=== PATIENT | male | born 1980 | race Caucasian/White ===

== ENCOUNTER 2017-08-28 09:05 | Emergency (ER) | payer MEDICAID ==
[~2017-08-28] VITALS: Ht 167.6 cm; Wt 80.7 kg
[2017-08-28] MEDS ORDERED: IBUPROFEN600 MG ORAL (09:34)
[2017-08-28] MEDS ORDERED: TYLENOL325 MG ORAL (09:34)
[2017-08-28] MEDS ORDERED: Acetaminophen 500mg (ES) tab ORAL ONE (09:45)
[2017-08-28 10:18] VITALS: BP 117/65
--- NOTE | 2017-08-28 11:01 | Diagnostic Imaging Report ---
Indication: Pain Technique: XRAY Knee 3v R Comparison: None Findings: There is no acute fracture or dislocation. Anatomic alignment and normal limits. There is minimal narrowing of the medial femorotibial compartment. No knee joint effusion. No radiopaque foreign body seen. Impression: No acute fracture or dislocation.
--- NOTE | 2017-08-28 14:50 | Emergency Room Report ---
History of Present Illness General Chief Complaint: Lower Extremity Injury Source: Patient Present Illness HPI Patient 36-year-old male presented to increased right knee pain. Patient gradual onset of symptoms since yesterday. Patient states that he had been running and subsequently developed increased pain. He reports having some numbness to the second third and fourth toe. He denies any weakness. Allergies: Coded Allergies: No Known Allergies (Unverified , 08/28/17) Patient History Past Medical History: see triage record Reviewed Nursing Documentation: PMH: Agreed, PSxH: Agreed Nursing Documentation-PMH Past Medical History: No Stated History Review of Systems All Other Systems: negative except mentioned in HPI Physical Exam Vital Signs Date Time Temp Pulse Resp B/P (MAP) Pulse Ox O2 Delivery O2 Flow Rate FiO2 08/28/17 09:08 98.1 63 18 117/65 99 Room Air General Appearance: well appearing, no apparent distress, alert, GCS 15 Head: normocephalic, atraumatic ENT: hearing grossly normal, normal voice Neck: full range of motion, supple Respiratory: no respiratory distress, speaking full sentences Cardiovascular #1: normal peripheral pulses, regular rate, rhythm, no edema Gastrointestinal: normal inspection, non tender, soft Musculoskeletal: no calf tenderness, decreased range of mation, other - laxity to medial stress Neurologic: normal inspection, alert, oriented x3, normal gait Psychiatric: mood/affect normal Skin: no rash Medical Decision Making Diagnostic Impression: Primary Impression: Knee MCL sprain ER Course Patient presented for knee pain. Differential diagnosis included was not limited to popliteal aneurysm, arthritis, dislocation, ligamentous injury, septic joint among others. Because of complexity of patient's case imaging studies were ordered. X-ray imaging previous interpreted by me showed normal blood alignment without evident fracture. The patient given ibuprofen and Tylenol. The patient was ambulated with crutches. The patient stated he will followup with his orthopedic physician. Last Vital Signs Date Time Temp Pulse Resp B/P (MAP) Pulse Ox O2 Delivery O2 Flow Rate FiO2 08/28/17 10:18 98.1 63 18 117/65 99 Room Air Status: improved Disposition: HOME, SELF-CARE Condition: Stable Scripts Acetaminophen (Tylenol) 325 Mg Tablet 650 MG ORAL Q6H Y for Prn Pain/Headache/Temp > 101, #30 TAB 0 Refills Prov: Linus Godwin 12/30/17 Ibuprofen* (MOTRIN*) 600 Mg Tablet 600 MG ORAL Q8H Y for For Pain, #30 TAB 0 Refills Prov: Linus Godwin 08/28/17 Referrals: [facility]ERR[facility] (PCP) Patient Instructions: Knee Sprain, [id number] Linus Godwin Aug 28, 2017 14:50
== END 2017-08-28 10:20 | disposition home or self-care (01) ==
LOC: EMR 09:48
DX: S83.8X1A Sprain of other specified parts of right knee, initial encounter (principal); R20.0 Anesthesia of skin
CPT/HCPCS: 99284

== ENCOUNTER 2018-05-09 02:59 | Emergency (ER) | payer MEDICAID ==
[~2018-05-09] VITALS: Ht 167.6 cm; Wt 81.6 kg
[~2018-05-09 02:59] MED LIST: IBUPROFEN600 MG ORAL; TYLENOL325 MG ORAL
[2018-05-09 03:15] VITALS: BP 129/87
--- NOTE | 2018-05-09 03:24 | Emergency Room Report ---
History of Present Illness General Chief Complaint: General Complaint Source: Patient Present Illness HPI CC: "I relapsed." HPI: Mr. Donis is a healthy 37 yo male who presents 20 minutes after smoking crack cocaine. He developed a nosebleed and headache. His friend asked him to be evaluated in ED. He has diffuse numbness and tingling in body. He feels anxiety. He has mild chest pressure. Mild diffuse headache. Allergies: Coded Allergies: No Known Allergies (Unverified , 08/28/17) Patient History Past Medical History: see triage record, old chart reviewed Social History: Reports: drug use Reviewed Nursing Documentation: PMH: Agreed; PSxH: Agreed Review of Systems Constitutional: Denies: fever, malaise Cardiovascular: Reports: chest pain Gastrointestinal: Denies: abdominal pain Musculoskeletal: Denies: back pain Neurological: Reports: headache, paresthesia All Other Systems: negative except mentioned in HPI Physical Exam Vital Signs Date Time Temp Pulse Resp B/P (MAP) Pulse Ox O2 Delivery O2 Flow Rate FiO2 05/09/18 03:09 97.9 100 20 121/71 97 Room Air 97.9 Sp02 EP Interpretation: reviewed, normal General Appearance: no apparent distress, alert, GCS 15, non-toxic Head: normocephalic, atraumatic Eyes: bilateral eye normal inspection ENT: hearing grossly normal, normal pharynx, no angioedema, normal voice, other - dried blood in right nare no active bleeding no septal hematoma Neck: full range of motion, supple/symm/no masses Respiratory: chest non-tender, lungs clear, normal breath sounds, no rhonchi, no respiratory distress, no retraction, no accessory muscle use, no wheezing, speaking full sentences Cardiovascular #1: regular rate, rhythm, no edema, no gallop, no JVD, no murmur , no rub Gastrointestinal: normal bowel sounds, non tender, soft, non-distended, no guarding, no rebound Genitourinary: normal inspection Musculoskeletal: back normal, gait/station normal, normal range of motion, non- tender Neurologic: alert, oriented x3, responsive, motor strength/tone normal, sensory intact, speech normal Psychiatric: judgement/insight normal, memory normal, no suicidal/homicidal ideation, anxious Skin: normal color, no rash, warm/dry, well hydrated Lymphatic: no adenopathy Medical Decision Making Diagnostic Impression: Primary Impression: Cocaine abuse Additional Impressions: Headache Anterior epistaxis Chest pressure ER Course Mr. Donis walked into ER calmly. Appeared well and comfortable. During examination, he became anxious. I do not suspect ACS, dissection, ICH. Given lorazepam and reassurance. dc'd home Last Vital Signs Date Time Temp Pulse Resp B/P (MAP) Pulse Ox O2 Delivery O2 Flow Rate FiO2 05/09/18 03:09 97.9 100 20 121/71 97 Room Air 97.9 Status: improved Sheela Thomas MD May 09, 2018 03:24
[2018-05-09] MEDS ORDERED: LORazepam 1mg tab ORAL ONE (03:30)
[2018-05-09 03:40] VITALS: BP 124/86
== END 2018-05-09 03:50 | disposition home or self-care (01) ==
LOC: EMR 03:50
DX: F14.10 Cocaine abuse, uncomplicated (principal); R51 Headache; R04.0 Epistaxis; R07.89 Other chest pain
CPT/HCPCS: 99282

== ENCOUNTER 2019-12-27 10:25 | Emergency (ER) | payer MEDICAID ==
[~2019-12-27] VITALS: Ht 167.6 cm; Wt 81.6 kg
[2019-12-27 10:30] VITALS: BP 106/64
--- NOTE | 2019-12-27 10:55 | Emergency Room Report ---
History of Present Illness General Chief Complaint: Flu Like Symptoms Source: Patient Present Illness HPI Disclaimer: Please note that this report is being documented using [email or web address] technology. This can lead to erroneous entry secondary to incorrect interpretation by the dictating instrument. HPI: 39-year-old male presents for evaluation of chest pain shortness of breath. Symptoms present approximately 1 week. The patient states he has a history of crack cocaine use and recently relapsed. Since then he has been having anterior chest pain and upper shoulder pain for approximately 1 week. No exacerbating relieving symptoms. He is also developed some shortness of breath, nonproductive cough, nasal congestion, sore throat. Denies fever, vomiting, diarrhea. No known sick contacts. The patient has been isolating. Has not had a COVID-19 test. States he has a history of heart murmur and possible valve problem but he does not know his formal diagnosis. PMH: Unspecified heart valve issue, substance abuse PSH: Denied Allergies: Denied Social Hx: cocaine use Allergies: Coded Allergies: No Known Allergies (Unverified , 08/28/17) COVID-19 Screening Contact w/high risk pt: No Recent Travel to affected area: No Experienced COVID-19 symptoms?: Yes COVID-19 symptoms experienced: Shortness of Breath, Cough, Runny Nose, Flu- Like Symptoms Nursing Documentation-PMH Past Medical History: No History, Except For Review of Systems All Other Systems: negative except mentioned in HPI Physical Exam Vital Signs Date Time Temp Pulse Resp B/P (MAP) Pulse Ox O2 Delivery O2 Flow Rate FiO2 12/27/19 10:30 97.7 55 19 106/64 98 Room Air General: Awake and alert, no acute distress HEENT: NC/AT. EOMI. Cardiovascular: RRR. S1 and S2 normal. No murmur appreciated Resp: Normal work of breathing. Nonproductive cough during exam. No wheezing or crackles Skin: Intact. No abrasions, laceration or rash over the exposed skin MSK: Normal tone and bulk. Moving all extremities. No obvious deformity. Neuro: Awake and alert. Mentating appropriately. Medical Decision Making Diagnostic Impression: Primary Impression: Chest pain Additional Impressions: Suspected 2019 novel coronavirus infection Stimulant use disorder Respiratory illness ER Course 39-year-old male presents for evaluation of chest pain shortness of breath of 4 days duration. Differential includes was not limited to substance induced vasospasm, angina, electrolyte abnormality, musculoskeletal chest pain, myocarditis, pericarditis, aortic dissection, PE, ACS, viral syndrome, COVID-19 infection, GERD, respiratory syndrome. EKG obtained at triage concerning for ST segment changes in lead I and aVL without reciprocal depressions. Repeat EKGs with similar morphology. No prior for comparison. Lead I approximately 1 mm elevation with lead aVL slightly less. Patient has persistent chest pain was given aspirin. Chest x-ray shows a normal cardiac silhouette. No pneumothorax, no infiltrates. I have less concern for aortic dissection clinically as opposed to either COVID-19 induced vasospasm/STEMI mimic or substance-induced vasospasm. Discussed with Dr. Goncalves at [facility] who has accepted the patient for transfer and cardiology evaluation. Will be sent by stat [facility]. Vital signs remained within normal limits. Patient stable for transfer. Laboratory Tests Test 12/27/19 12:01 12/27/19 12:30 White Blood Count 10.5 K/UL (4.8-10.8) Red Blood Count 5.19 M/UL (4.70-6.10) Hemoglobin 15.0 G/DL (14.2-18.0) Hematocrit 42.1 % (42.0-52.0) Mean Corpuscular Volume 81 FL (80-99) Mean Corpuscular Hemoglobin 28.9 PG (27.0-31.0) Mean Corpuscular Hemoglobin Concent 35.7 G/DL (32.0-36.0) Red Cell Distribution Width 10.8 % (11.6-14.8) L Platelet Count 218 K/UL (150-450) Mean Platelet Volume 7.0 FL (6.5-10.1) Neutrophils (%) (Auto) 78.7 % (45.0-75.0) H Lymphocytes (%) (Auto) 12.7 % (20.0-45.0) L Monocytes (%) (Auto) 5.6 % (1.0-10.0) Eosinophils (%) (Auto) 2.5 % (0.0-3.0) Basophils (%) (Auto) 0.5 % (0.0-2.0) Sodium Level 143 MMOL/L (136-145) Potassium Level 4.7 MMOL/L (3.5-5.1) Chloride Level 108 MMOL/L (98-107) H Carbon Dioxide Level 27 MMOL/L (21-32) Anion Gap 8 mmol/L (5-15) Blood Urea Nitrogen 19 mg/dL (7-18) H Creatinine 1.2 MG/DL (0.55-1.30) Estimated Glomerular Filtration Rate > 60 mL/min (>60) Glucose Level 100 MG/DL (74-106) Calcium Level 8.7 MG/DL (8.5-10.1) Total Bilirubin 0.3 MG/DL (0.2-1.0) Aspartate Amino Transferase (AST) 19 U/L (15-37) Alanine Aminotransferase (ALT) 50 U/L (12-78) Alkaline Phosphatase 41 U/L (46-116) L Troponin I 0.000 ng/mL (0.000-0.056) Pro-B-Type Natriuretic Peptide 18 pg/mL (0-125) Total Protein 6.8 G/DL (6.4-8.2) Albumin 3.8 G/DL (3.4-5.0) Globulin 3.0 g/dL Albumin/Globulin Ratio 1.3 (1.0-2.7) Urine Opiates Screen Pending Urine Barbiturates Screen Pending Phencyclidine (PCP) Screen Pending Urine Amphetamines Screen Pending Urine Benzodiazepines Screen Pending Urine Cocaine Screen Pending Urine Marijuana (THC) Screen Pending EKG Diagnostic Results EKG Time: 11:03 Rate: normal Rhythm: NSR Other Impression Sinus rhythm, slight left axis deviation, normal intervals. There is ST segment elevation in lead I and aVL without reciprocal depressions. Rhythm Strip Diag. Results Rhythm Strip Time: 11:03 EP Interpretation: yes Rate: 60s Rhythm: NSR, no PVC's, no ectopy Last Vital Signs Date Time Temp Pulse Resp B/P (MAP) Pulse Ox O2 Delivery O2 Flow Rate FiO2 12/27/19 10:30 55 19 Room Air 12/27/19 10:30 97.7 106/64 (78) 98 Disposition: SHORT-TERM HOSP Condition: Serious Brooks Workman MD Dec 27, 2019 10:55
--- NOTE | 2019-12-27 10:57 | NUR ---
ED Nurse Note: pt. aaox4. ambulatory.pt. walked in to er from home. per pt. he has been having cough, congestion and cp that radiates to his back x 4 days.
--- NOTE | 2019-12-27 11:45 | NUR ---
ED Nurse Note: Pt resting on bed with portable manager cardiac cath and applied supplemental oxygen at 2LPM.
--- NOTE | 2019-12-27 11:50 | Diagnostic Imaging Report ---
Indication: Cough, chest pain Technique: XRAY Chest 1v Comparison: None Findings: Heart size and mediastinal contours are within normal limits for AP technique. There is no focal airspace consolidation, pneumothorax or pleural effusion. Mild scoliosis may possibly be in part positional. Osseous structures demonstrate no acute abnormality. Impression: No radiographic evidence of acute cardiopulmonary disease.
[2019-12-27 12:15] LABS: BASOPHILS % (AUTO) 0.5 % (0.0-2.0); EOSINOPHILS % (AUTO) 2.5 % (0.0-3.0); HEMATOCRIT 42.1 % (42.0-52.0); LYMPHOCYTES % (AUTO) 12.7 % (20.0-45.0); MEAN CORPUSCULAR VOLUME 81 FL (80-99); MONOCYTES % (AUTO) 5.6 % (1.0-10.0); NEUTROPHILS % (AUTO) 78.7 % (45.0-75.0); PLATELET COUNT 218 K/UL (150-450); RED BLOOD COUNT 5.19 M/UL (4.70-6.10); RED CELL DISTRIBUTION WIDTH 10.8 % (11.6-14.8); WHITE BLOOD COUNT 10.5 K/UL (4.8-10.8)
[2019-12-27 12:26] LABS: ANION GAP 8 mmol/L (5-15); BLOOD UREA NITROGEN 19 mg/dL (7-18); CALCIUM 8.7 MG/DL (8.5-10.1); CARBON DIOXIDE 27 MMOL/L (21-32); CHLORIDE 108 MMOL/L (98-107); CREATININE 1.2 MG/DL (0.55-1.30); POTASSIUM 4.7 MMOL/L (3.5-5.1); SODIUM 143 MMOL/L (136-145)
[2019-12-27] MEDS ORDERED: Aspirin Baby 81mg ORAL ONE (12:30)
[2019-12-27 12:37] VITALS: BP 116/63
[2019-12-27 12:37] LABS: ALANINE AMINOTRANSFERASE 50 U/L (12-78); ALBUMIN 3.8 G/DL (3.4-5.0); ALBUMIN/GLOBULIN RATIO 1.3 (1.0-2.7); ALKALINE PHOSPHATASE 41 U/L (46-116); ASPARTATE AMINO TRANSFERASE 19 U/L (15-37); BILIRUBIN,TOTAL 0.3 MG/DL (0.2-1.0)
--- NOTE | 2019-12-27 12:49 | NUR ---
ED Nurse Note: pt aware that he is going to get transferred to [facility].
--- NOTE | 2019-12-27 12:55 | NUR ---
ED Nurse Note: Report given to River CONRAD of [facility].
[2019-12-27 12:59] VITALS: BP 118/75
--- NOTE | 2019-12-27 12:59 | NUR ---
ED Nurse Note: Pt transferred to [facility] with all his belongings sent with him. pt transferred via [facility] and stable.
== END 2019-12-27 12:59 | disposition short-term general hospital (02) ==
LOC: EMR 10:55
DX: I21.3 ST elevation (STEMI) myocardial infarction of unspecified site (principal); R07.9 Chest pain, unspecified; R06.02 Shortness of breath; F19.90 Other psychoactive substance use, unspecified, uncomplicated
CPT/HCPCS: 36415; 71045; 80053; 80307; 83880; 84484; 85025; 93005; Z7502; 99291